=== PATIENT | female | born 1950 | race Caucasian/White ===

== ENCOUNTER → 2023-04-02 09:44 | Outpatient (BNVA) | payer MEDICARE, OTHER, SELFPAY | PROVIDERS: PCP Family Medicine; Visit Provider Family Medicine | DX: E03.9 Hypothyroidism, unspecified (principal); J30.2 Other seasonal allergic rhinitis | CPT/HCPCS: 80053; 80061; 84439; 84443; 85025 ==

== ENCOUNTER → 2023-05-14 10:57 | Outpatient (BNVA) | payer MEDICARE, OTHER, SELFPAY | PROVIDERS: PCP Family Medicine; Referring Provider Family Medicine; Visit Provider Surgery | DX: R19.5 Other fecal abnormalities | CPT/HCPCS: 99204 ==

== ENCOUNTER → 2023-06-02 08:01 | Outpatient (BNVA) | payer MEDICARE, OTHER, SELFPAY | PROVIDERS: PCP Family Medicine; Visit Provider Surgery | DX: R19.5 Other fecal abnormalities (principal); R63.4 Abnormal weight loss; Z86.010 Personal history of colon polyps | CPT/HCPCS: 99203; 99214 ==

== ENCOUNTER 2023-09-04 08:13 | Outpatient (CLI) | payer MEDICARE, OTHER, SELFPAY ==
--- NOTE | 2023-09-04 08:21 | MM_ITS ---
WS: [id number] Bilateral screening 3D tomosynthesis digital mammogram, 09/04/2023 Clinical Data: MMG Comparison: 09/02/2022, 08/21/2021, 08/13/2020, 04/14/2018. Findings: The breast parenchymal pattern shows heterogeneous density. No spiculated masses or clustered calcifi cations are seen. There are no secondary signs of carcinoma. There are scattered benign calcification s throughout both breasts. MM/[place] [id number] Impression: 1. Negative bilateral mammogram unchanged. 2. Recommend annual screening mammograms. BIRADS: 1-Negative FOLLOW UP: 1 Year Follow-up The CAD machine design checker was used.
== END 2023-09-04 08:14 | disposition home or self-care (01) ==
LOC: RAD 08:13
PROVIDERS: PCP Family Medicine; Visit Provider Family Medicine
DX: Z12.31 Encounter for screening mammogram for malignant neoplasm of breast (principal); R92.333 Mammographic heterogeneous density, bilateral breasts; R92.1 Mammographic calcification found on diagnostic imaging of breast
CPT/HCPCS: 77063; 77067

== ENCOUNTER 2023-09-10 08:21 | Day surgery (SDC) | payer MEDICARE, OTHER, SELFPAY ==
--- NOTE | 2023-09-10 08:31 | P.ANESASSM_ITS ---
Pre-Anesthetic Assessment Height/Weight: Height 1.65 m Operation Date: 09/10/23 09:45 Proposed Procedures p Colonoscopy 41922, G0105, R19.5(Not Applicable) - Russell Lee MD Familial anesthetic complications: None Was Beta Tera taken within 24 hours: N/A Was Clonidine taken within 24 hours: N/A Social No alcohol and No tobacco Exam alert, oriented x 3, clear to auscultation bilaterally and regular rate & rhythm Airway Submandibular: within normal limits Cervical ROM: within normal limits Mallampati: Class III Dentition: partials (Upper and lower) History/ROS No significant history except as noted and No significant complaints Pulmonary Exertional Dyspnea CV/HEM None reported None reported Hepatic None reported GI Gastroesophageal Reflux Disease (Food dependent, none this morning) Metabolic Hyperlipidemia and Thyroid Disease Musc/skel Lower Back Pain, Osteoarthritis/DJD and 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) Neuropsych Neuropathy Anesthetic Plan ASA status: 2 Anesthesia: Anesthesia Evaluation, General and MAC Risk of > 500 ml blood loss (7ml/kg in children): No Medications/Allergies Home Medications Medication Instructions Recorded Confirmed Last Taken Type metoprolol succinate 25 mg 25 mg PO DAILY 03/23/23 09/10/23 09/09/23 History tablet,extended release 24 hr levocetirizine 5 mg tablet (Xyzal) 5 mg PO DAILY #30 tabs 04/02/23 09/10/23 09/08/23 Rx levothyroxine 75 mcg capsule 75 mcg PO DAILY #90 caps 04/03/23 09/10/23 09/09/23 Rx B-complex with vitamin C 1 cap PO DAILY 06/02/23 09/08/23 09/08/23 History Icaps 1 tab PO DAILY 06/02/23 09/10/23 09/08/23 History calcium, mag, zinc, D3 1 tab PO DAILY 06/02/23 09/10/23 09/08/23 History garlic 1,000 mg capsule (garlic 1,000 mg PO DAILY 06/02/23 09/10/23 09/08/23 History oil) omega-3 fatty acids-fish oil 360 1 cap PO DAILY 06/02/23 09/10/23 09/08/23 History mg-1,200 mg capsule (Fish Oil) fluticasone propionate 50 2 spray intranasal DAILY PRN 09/08/23 09/10/23 09/08/23 History mcg/actuation nasal Congestion spray,suspension (Flonase Allergy Relief) Allergies Allergy/AdvReac Type Severity Reaction Status Date / Time amoxicillin Allergy ADR-Diarrhe Verified 07/10/23 13:52 a [facility] Anesthesia Medical History (Updated 07/10/23 @ 13:52 by Ashli Swift) Anxiety Hypothyroidism Surgical History (Updated 07/10/23 @ 13:52 by Ashli Swift) H/O: hysterectomy Family History (System 07/10/23 @ 13:52 by Ashli Swift) Mother Hypertension Hypothyroidism Heart abnormality Postsurgical cardiac pacemaker in situ Sister Heart abnormality Father Stroke Grandfather Heart abnormality Social History (System 07/10/23 @ 13:52 by Ashli Swift) Smoking and tobacco/nicotine status: never used tobacco/nicotine Second hand smoke exposure: No Alcohol intake: never Substance/Drug Use: never Adopted: No Caregiver/support person: No Lives independently: Yes Housing: House Marital status: / Number of children: 1 Highest education level completed: High School Graduate service: No Current occupational status: retired Current occupational exposures/hazards: No Data Anesthesia Cardiac Studies: No Data to Display
[2023-09-10 08:41] VITALS: BP 131/71; PULSE 77; RESP 16; TEMP 36.8; O2SAT 96; BMI 28.9
--- NOTE | 2023-09-10 08:44 | W.PM.OPSFHP ---
Same Day Surgery H&P Indication for Procedure/HPI DATE OF PROCEDURE: September 10, 2023 CHIEF COMPLAINT/INDICATIONFOR SURGICAL PROCEDURE: positive cologuard PREOP DIAGNOSIS: positive cologuard PLANNED PROCEDURE: Operation Date: 09/10/23 09:45 Proposed Procedures p Colonoscopy 59001, G0105, R19.5(Not Applicable) - Russell Lee MD Medications/Allergies* Home Medications Medication Instructions Recorded Confirmed Type metoprolol succinate 25 mg 25 mg PO DAILY 03/23/23 09/10/23 History tablet,extended release 24 hr B-complex with vitamin C 1 cap PO DAILY 06/02/23 09/08/23 History Icaps 1 tab PO DAILY 06/02/23 09/10/23 History calcium, mag, zinc, D3 1 tab PO DAILY 06/02/23 09/10/23 History garlic 1,000 mg capsule (garlic 1,000 mg PO DAILY 06/02/23 09/10/23 History oil) omega-3 fatty acids-fish oil 360 1 cap PO DAILY 06/02/23 09/10/23 History mg-1,200 mg capsule (Fish Oil) fluticasone propionate 50 2 spray intranasal DAILY PRN 09/08/23 09/10/23 History mcg/actuation nasal Congestion spray,suspension (Flonase Allergy Relief) Allergies/Adverse Reactions Allergy/AdvReac Type Severity Reaction Status Date / Time amoxicillin Allergy ADR-Diarrhe Verified 07/10/23 13:52 a Pertinent History/Comorbid Conditions* Medical History (Updated 07/10/23 @ 13:52 by Ashli Swift) Anxiety Hypothyroidism Surgical History (Updated 07/10/23 @ 13:52 by Ashli Swift) H/O: hysterectomy Family History (Updated 04/02/23 @ 09:10 by Karly Palmer LPN) Father Mother Sister Hypothyroidism Mother Heart abnormality Mother Sister Grandfather Postsurgical cardiac pacemaker in situ Mother Hypertension Mother Stroke Father Social History Smoking and tobacco/nicotine status: never used tobacco/nicotine Second hand smoke exposure: No Alcohol intake: never Substance/Drug Use: never Adopted: No Caregiver/support person: No Lives independently: Yes Housing: House Marital status: / Number of children: 1 Highest education level completed: High School Graduate service: No Current occupational status: retired Current occupational exposures/hazards: No Pertinent Exam Findings alert, oriented x 3, clear to auscultation bilaterally and regular rate & rhythm Recommendations Surgery/Procedure today Coding Level of Care Code Acute Code for Chg Fwd
[2023-09-10] MEDS: sodium chloride 0.9% 1,000 ML 30 ML IV (08:45)
[2023-09-10 10:44] VITALS: BP 111/63; PULSE 66; RESP 10; TEMP 36.3; O2SAT 98
[2023-09-10 11:05] VITALS: BP 125/72; PULSE 65; RESP 16; O2SAT 99
--- NOTE | 2023-09-10 11:30 | ANE.PACU2 ---
Inpatient post-anesthesia follow up: Airway intact: Yes Vital signs: Temperature 97.3 F Pulse Rate 65 Respiratory Rate 16 Blood Pressure 125/72 Pulse Oximetry 99 Oxygen Delivery Me thod Room Air Oxygen Flow Rate Fraction of Inspir ed Oxygen Hydration adequate: Yes Nausea and vomiting: No Pain level: 1 Mental status: Baseline
== END 2023-09-10 11:31 | disposition home or self-care (01) ==
PROVIDERS: PCP Family Medicine; Visit Provider Surgery
PROC: 0DJD8ZZ Inspection of Lower Intestinal Tract, Via Natural or Artificial Opening Endoscopic (ICD-10-PCS; CPT 45378; principal; 2023-09-10 09:45)
DX: Z12.11 Encounter for screening for malignant neoplasm of colon (principal); D12.2 Benign neoplasm of ascending colon; D12.0 Benign neoplasm of cecum; K21.9 Gastro-esophageal reflux disease without esophagitis; E78.5 Hyperlipidemia, unspecified; M19.90 Unspecified osteoarthritis, unspecified site; F41.9 Anxiety disorder, unspecified; E03.9 Hypothyroidism, unspecified
CPT/HCPCS: 45380; 45385; 88305; J2704; J7030

== ENCOUNTER → 2024-01-14 15:16 | Outpatient (BNVA) | payer MEDICARE, OTHER, SELFPAY | PROVIDERS: PCP Family Medicine; Referring Provider Family Medicine; Visit Provider Internal Medicine Cardiovascular Disease | DX: I49.8 Other specified cardiac arrhythmias (principal); R07.9 Chest pain, unspecified | CPT/HCPCS: 93005 ==

== ENCOUNTER 2024-02-04 06:11 | Outpatient (CLI) | payer MEDICARE, OTHER, SELFPAY ==
--- NOTE | 2024-02-04 06:15 | USCV_ITS ---
Mary Garcia Age: 73 Gender: F : 1950 Exam Date: 02/04/2024 06:31 Ordering Phys: Guzman Landon MD ([email or web address]) Technologist: Exam Location: [facility] [place] Indication: sob cp BP: 124 / 73 HR: 60 Rhythm: Sinus Technical Quality: Adequate MEASUREMENTS (Male / Female) Normal Values 2D ECHO LV Diastolic Diameter PLAX 4.6 cm 4.2 - 5.9 / 3.9 - 5.3 cm IVS Diastolic Thickness 0.9 cm 0.6 - 1.0 / 0.6 - 0.9 cm IVS Systolic Thickness 1.7 cm LVPW Diastolic Thickness 1.3 cm 0.6 - 1.0 / 0.6 - 0.9 cm LVPW Systolic Thickness 1.7 cm LVOT Diameter 1.9 cm LV Ejection Fraction 2D Teich 79.8 % LV Ejection Fraction MOD 4C 75.0 % LV Ejection Fraction MOD 2C 72.1 % LV Ejection Fraction 2C AL 72.6 % LA Diameter 4.2 cm RA Systolic Volume 4C AL 64.4 ml RA Systolic Volume 4C MOD 64.1 ml LA Sys Volume AL 66.1 cm cubed LA Sys Volume Index AL 35.0 cm cubed/m squared Aorta at Sinotubular Diameter 2.6 cm M-MODE LV Ejection Fraction MM Teich 72.3 % IVS Diastolic Thickness MM 1.2 cm 0.6 - 1.0 / 0.6 - 0.9 cm IVS Systolic Thickness MM 1.8 cm LVPW Diastolic Thickness MM 1.5 cm 0.6 - 1.0 / 0.6 - 0.9 cm LVPW Systolic Thickness MM 2.3 cm LA Ao Ratio MM 1.4 AV Cusp Separation MM 2.3 cm DOPPLER MV Peak Velocity 92.0 cm/s MV Area PHT 2.8 cm squared Mitral E to A Ratio 1.0 TV Peak Velocity 121.7 cm/s TR Peak Velocity 147.0 cm/s TR Peak Gradient 8.6 mmHg TV Peak E Velocity 67.0 cm/s Right Atrial Pressure 3.0 mmHg Pulmonary Artery Systolic Pressu 11.6 mmHg PV Peak Velocity 73.0 cm/s FINDINGS Left Ventricle Normal left ventricular size, systolic function and wall thickness, with no regional wall motion abnormalities. Left ventricular ejection fraction is estimated at 60 %. Grade I/IV diastolic dysfunction (abnormal relaxation filling pattern), normal to mildly elevated filling pressures. Right Ventricle The right ventricle is normal in size and function. Right Atrium The right atrium is normal in size. Left Atrium Moderately increased left atrial size. Mitral Valve No mitral valve stenosis. Trace mitral valve regurgitation. Aortic Valve Moderate aortic valve calcification. No aortic valve stenosis. Trace aortic valve regurgitation. Tricuspid Valve Structurally normal tricuspid valve without significant stenosis or regurgitation. Pulmonary artery systolic pressure is normal. Pulmonic Valve Structurally normal pulmonic valve without significant stenosis. There is no pulmonic regurgitation. Pericardium Normal pericardium without effusion. Aorta Normal ascending aorta dimension. IVC The inferior vena cava appears normal. CONCLUSIONS Normal left ventricular size, systolic function and wall thickness, with no regional wall motion abnormalities. Left ventricular ejection fraction is estimated at 60 %. Grade I/IV diastolic dysfunction (abnormal relaxation filling pattern), normal to mildly elevated filling pressures. Moderately increased left atrial size. Moderate aortic valve calcification. No aortic valve stenosis. Trace aortic valve regurgitation. There is no pericardial effusion. Pulmonary artery systolic pressure is within normal limits. Right atrial pressure is around 5 mm of mercury. Guzman Landon MD (Electronically Signed) Final Date: 04 February 2024 21:10 S
== END 2024-02-04 06:12 | disposition home or self-care (01) ==
LOC: RAD 06:12
PROVIDERS: PCP Family Medicine; Visit Provider Internal Medicine Cardiovascular Disease
DX: I50.30 Unspecified diastolic (congestive) heart failure (principal); I51.7 Cardiomegaly; I35.0 Nonrheumatic aortic (valve) stenosis; R00.2 Palpitations; I47.10 Supraventricular tachycardia, unspecified; R06.02 Shortness of breath
CPT/HCPCS: 93306

== ENCOUNTER → 2024-06-02 15:02 | Outpatient (BNVA) | payer MEDICARE, OTHER, SELFPAY | PROVIDERS: PCP Family Medicine; Visit Provider Family Medicine | DX: Z13.6 Encounter for screening for cardiovascular disorders (principal); E55.9 Vitamin D deficiency, unspecified; E03.9 Hypothyroidism, unspecified | CPT/HCPCS: 80053; 80061; 82306; 84439; 84443; 85025 ==

== ENCOUNTER 2024-09-13 08:24 | Outpatient (CLI) | payer MEDICARE, OTHER, SELFPAY ==
--- NOTE | 2024-09-13 08:31 | MM_ITS ---
WS: [id number] BILATERAL 3D TOMOSYNTHESIS DIGITAL SCREENING MAMMOGRAPHY WITH CAD CLINICAL INFORMATION: SCREENING HISTORY: Screening mammogram. No current complaints. COMPARISON: 2023 TECHNIQUE: Bilateral CC and MLO views. FINDINGS: The breasts are composed of heterogeneous fibroglandular density tissue, which can limit the detection of small underlying mass lesions. Small ovoid asymmetric density 6 o'clock position RIGHT breast best seen on the MLO view. Recommend RIGHT breast diagnostic mammography and ultrasound if persistent. Punctate and lucent centered calcifications. MM/MM [facility] tomosynthesis [id number] IMPRESSION: DENSITY: The breasts are heterogeneously dense, which may obscure small masses. BI-RADS: 0 - Incomplete: Need additional imaging evaluation FOLLOW UP: Need Additional Imaging Recommend RIGHT breast diagnostic mammography and ultrasound if persistent
== END 2024-09-13 08:25 | disposition home or self-care (01) ==
LOC: RAD 08:25
PROVIDERS: PCP Family Medicine; Visit Provider Family Medicine
DX: Z12.31 Encounter for screening mammogram for malignant neoplasm of breast (principal); R92.333 Mammographic heterogeneous density, bilateral breasts; N63.15 Unspecified lump in the right breast, overlapping quadrants; R92.1 Mammographic calcification found on diagnostic imaging of breast
CPT/HCPCS: 77063; 77067

== ENCOUNTER 2024-10-06 12:38 | Outpatient (CLI) | payer MEDICARE, OTHER, SELFPAY ==
--- NOTE | 2024-10-06 13:00 | MM_ITS ---
WS: [id number] RIGHT 3D TOMOSYNTHESIS DIGITAL MAMMOGRAPHY WITH CAD CLINICAL INFORMATION: BIRADS 0 HISTORY: Additional views COMPARISON: 09/13/2024 TECHNIQUE: 3 views of the right breast were obtained. FINDINGS: The right breast is composed of heterogeneous fibroglandular density tissue, which can limit the detection of small underlying mass lesions. Previously described ovoid asymmetric density in the 6 o'clock position RIGHT breast is more difficult to appreciate today. Dense nodular tissue in this area. Ult rasound of this area to is pending. ULTRASOUND BREAST RIGHT TECHNIQUE: Ultrasound right breast focused area of concern. CLINICAL INFORMATION: BIRADS 0 FINDINGS: Ultrasound RIGHT breast at the 4 to 6 o'clock position. Hypoechoic ovoid complex cystic lesion at the 5 o'clock position 1 cm from the nipple likely corresponds to the mammographic findings. This demonstrates through transmission compatible with cystic contents. This has a benign appearance. Incidental ductal ectasia in this area. Recommend return to annual screening mammography. MM/MM diag RT tomosynthesis [id number] IMPRESSION: DENSITY: The breasts are heterogeneously dense, which may obscure small masses. BI-RADS: 2 - Benign FOLLOW UP: 1 Year Follow-up Recommend return to annual screening mammography.
--- NOTE | 2024-10-06 13:30 | US_ITS ---
NOTE: Report was unsigned for reason: Order was edited. Original Signature date and time was: 10/06/24 @ 5627 WS: [id number] RIGHT 3D TOMOSYNTHESIS DIGITAL MAMMOGRAPHY WITH CAD CLINICAL INFORMATION: BIRADS 0 HISTORY: Additional views COMPARISON: 09/13/2024 TECHNIQUE: 3 views of the right breast were obtained. FINDINGS: The right breast is composed of heterogeneous fibroglandular density tissue, which can limit the detection of small underlying mass lesions. Previously described ovoid asymmetric density in the 6 o'clock position RIGHT breast is more difficult to appreciate today. Dense nodular tissue in this area. Ultrasound of this area to is pending. ULTRASOUND BREAST RIGHT TECHNIQUE: Ultrasound right breast focused area of concern. CLINICAL INFORMATION: BIRADS 0 FINDINGS: Ultrasound RIGHT breast at the 4 to 6 o'clock position. Hypoechoic ovoid complex cystic lesion at the 5 o'clock position 1 cm from the nipple likely corresponds to the mammographic findings. This demonstrates through transmission compatible with cystic contents. This has a benign appearance. Incidental ductal ectasia in this area. Recommend return to annual screening mammography. MTDD US/US breast RT limited* [id number] IMPRESSION: DENSITY: The breasts are heterogeneously dense, which may obscure small masses. BI-RADS: 2 - Benign FOLLOW UP: 1 Year Follow-up Recommend return to annual screening mammography.
== END 2024-10-06 12:39 | disposition home or self-care (01) ==
LOC: RAD 12:39
PROVIDERS: PCP Family Medicine; Visit Provider Family Medicine
DX: N60.01 Solitary cyst of right breast (principal); R92.333 Mammographic heterogeneous density, bilateral breasts
CPT/HCPCS: 76641; 76642; 77061; G0279

== ENCOUNTER → 2024-12-19 14:24 | Outpatient (BNVA) | payer MEDICARE, OTHER, SELFPAY | PROVIDERS: PCP Family Medicine; Visit Provider Family Medicine | DX: Z13.6 Encounter for screening for cardiovascular disorders (principal) | CPT/HCPCS: 80053; 80061; 84439; 84443; 85025 ==

== ENCOUNTER → 2025-01-11 15:09 | Outpatient (BNVA) | payer MEDICARE, OTHER, SELFPAY | PROVIDERS: PCP Family Medicine; Visit Provider Internal Medicine Cardiovascular Disease | DX: R00.2 Palpitations (principal) | CPT/HCPCS: 99214 ==

== ENCOUNTER → 2025-02-20 13:16 | Outpatient (BNVA) | payer MEDICARE, OTHER, SELFPAY | PROVIDERS: PCP Family Medicine; Referring Provider Family Medicine; Visit Provider Nurse Practitioner Family | DX: Z78.9 Other specified health status (principal); L53.8 Other specified erythematous conditions; L57.0 Actinic keratosis | CPT/HCPCS: 17000; 17110; 99203 ==